=== PATIENT | female | born 1950 | race Caucasian/White ===

== ENCOUNTER 2018-03-20 11:02 | Inpatient (IN) | payer MEDICARE, OTHER ==
[2018-03-13 13:48] LABS: BASOPHILS # (AUTO) 0.1 X10'3 (0-0.2); BASOPHILS % (AUTO) 0.7 % (0-1); EOSINOPHILS # (AUTO) 0.5 X10'3 (0-0.9); EOSINOPHILS % (AUTO) 6.2 % (0-6); LYMPHOCYTES # (AUTO) 1.7 X10'3 (1.1-4.8); LYMPHOCYTES % (AUTO) 19.8 % (21-51); MEAN CORPUSCULAR HEMOGLOBIN 28.7 PG (27.0-31.0); MEAN CORPUSCULAR HGB CONC 32.6 % (33.0-36.5); MEAN CORPUSCULAR VOLUME 87.8 FL (78-98); MEAN PLATELET VOLUME 10.2 FL (7.4-10.4); MONOCYTES # (AUTO) 0.4 X10'3 (0-0.9); MONOCYTES % (AUTO) 4.6 % (2-12); NEUTROPHILS # (AUTO) 6.1 X10'3 (1.8-7.7); NEUTROPHILS % (AUTO) 68.7 % (42-75); PRE OP HEMATOCRIT 43.2 % (35.0-45.0); PRE OP HEMOGLOBIN 14.1 g/dL (12.0-16.0); PRE OP PLATELET COUNT 226 X10'3 (140-440); RED BLOOD COUNT 4.91 X10'6 (4.20-5.60); RED CELL DISTRIBUTION WIDTH 15.2 % (11.5-14.5)
[2018-03-13 13:59] LABS: CLARITY,URINE SLIGHTLY CLOUDY (Clear); COLOR,URINE YELLOW (Yellow); GLUCOSE, URINE NEGATIVE (Neg); KETONES,URINE 40 mg/dl (Neg); LEUKOCYTE ESTERASE ,URINE NEGATIVE (Neg); NITRITES, URINE NEGATIVE (Neg); OCCULT BLOOD,URINE NEGATIVE (Neg); PH,URINE 6.5 (4.8-8.0); PROTEIN,URINE NEGATIVE (Neg); UROBILINOGEN,URINE 0.2 E.U/dL (0.2-1.0)
[2018-03-13 14:00] LABS: UA COLLECTION TYPE CLN CATCH MIDSTREAM
[2018-03-13 14:10] LABS: ALBUMIN 3.9 G/DL (3.4-5.0); ALBUMIN/GLOBULIN RATIO 1.2 (1.1-1.5); ALKALINE PHOSPHATASE 86 IU/L (46-116); BLOOD UREA NITROGEN 29 MG/DL (7-18); BUN/CREATININE RATIO 35.4 (6.6-38.0); CALCIUM 8.7 MG/DL (8.5-10.1); CHLORIDE 105 MMOL/L (99-107); CREATININE 0.82 MG/DL (0.40-0.90); PRE OP ALT 26 U/L (30-65); PRE OP ANION GAP 10 (8-16); PRE OP AST 14 U/L (10-37); PRE OP BILIRUB, TOTAL 0.3 MG/DL (0.0-1.0); PRE OP GLUCOSE 118 MG/DL (70-104); PRE OP POTASSIUM 3.9 MMOL/L (3.4-5.1); PRE OP SODIUM 142 MMOL/L (135-145); TOTAL CARBON DIOXIDE 27.5 MMOL/L (24-32); TOTAL PROTEIN 7.2 G/DL (6.4-8.2); eGFR 70 ML/MIN
[2018-03-13 14:13] LABS: PRE OP PROTIME 10.3 SECONDS (9.0-12.0)
[2018-03-13 14:24] LABS: BACTERIA,URINE 1+ /HPF (Neg); MUCUS STRANDS FEW /LPF (Neg); SQUAMOUS EPITHELIAL CELL,UR FEW /LPF (FEW); WBC,URINE 0-4 /HPF (0-4)
[~2018-03-20] VITALS: Ht 160 cm; Wt 96.9 kg
[2018-03-20] VITALS (18 sets, daily range): BP systolic 109–142; BP diastolic 58–78
[~2018-03-20 11:02] MED LIST: BIOT50002; CALCIUM/MAG/ZINC PO; CYCL-1 PO; FURO20TA4 PO; HYDROmorphone inj. 0.5 MG/0.5 ML DISP.SYRIN IV PRN; LUTEIN/ZEAXANTHIN; MULT-269 PO; NAPR-1166 PO; OMEP20CA10 PO; PER10325T PO; POTA8TAB8 PO; SIMV20TA PO; SUMA25TA35 PO; SUMAtriptan 25 MG tablet PO PRN; VITA1TAB20 PO; ZOLP10TA PO; ZOLP10TA5 PO; acetaminophen 325mg tablet PO ONE; acetaminophen 325mg tablet PO PRN; aspirin 325mg tablet PO SCH; bisacodyl 10mg suppository rectal RC PRN; celeCOXIB 100mg capsule PO ONE; clindamycin 600mg/D5W 50ml 50 ML IV ONE; diphenhydrAMINE 25mg capsule PO PRN; famotidine 20mg tablet PO ONE; gabapentin 300mg capsule PO ONE; magnesium hydroxide 30ml (MOM) UD suspension PO PRN; metoclopramide 5 mg/ml inj IV ONE; ondansetron/PF 4mg/2ml inj IV PRN; oxyCODONE SR 10mg (sust. release) tab -2 tabs (20mg) PO ONE; potassium chloride 8mEq ER tablet PO PRN; ringers solution, lacted 1,000 ML IV SCH; tranexamic acid inj. 1,000 MG in normal saline 100 ML IV ONE; vancomycin inj 1,500 MG in normal saline 300ml IV soln IV ONE
[2018-03-20] MEDS ORDERED: tetracaine 1% (10mg/ml) pres. free inj. ONE (13:09)
[2018-03-20] MEDS ORDERED: MIDAZolam 5mg/5ml vial ONE (13:11)
[2018-03-20] MEDS ORDERED: fentaNYL/PF 50MCG/1 ML 2ML syringe ONE ×2 (13:11→15:05)
[2018-03-20] MEDS ORDERED: morphine /PF 1mg/ml 10ml inj. ONE (13:11)
[2018-03-20] MEDS ORDERED: vancomycin 1,000mg inj ONE (13:15)
[2018-03-20] MEDS ORDERED: propofol inj 20 ML IV ONE ×2 (14:30→14:46)
[2018-03-20] MEDS ORDERED: ROPIVAcaine 0.5% (5mg/ml) 30ml vial ONE (14:30)
[2018-03-20] MEDS ORDERED: dexamethasone sod phosphate 4mg/ml inj. ONE (14:31)
[2018-03-20] MEDS ORDERED: LIDOcaine 1%/PF 5ML 10 MG/ML VIAL ONE (14:31)
[2018-03-20] MEDS ORDERED: ROPIVACAINE HCL/PF PAIN PUMP 400 ML IJ SCH ×2 (14:39→16:56)
[2018-03-20] MEDS ORDERED: naloxone 2mg/2ml inj 1.8 MG in normal saline 500ml IV soln 500 ML IV PRN (14:39)
[2018-03-20] MEDS ORDERED: ringers solution, lacted 1,000 ML IV SCH (14:39)
[2018-03-20] MEDS ORDERED: ondansetron/PF 4mg/2ml inj IV PRN ×2 (14:40)
[2018-03-20] MEDS ORDERED: meperidine/PF 25mg/ml syringe IV PRN ×3 (14:40)
[2018-03-20] MEDS ORDERED: morphine 4 MG/ML inj SYRINge IV PRN ×2 (14:40)
[2018-03-20] MEDS ORDERED: diphenhydrAMINE 50 mg/ml inj IV PRN (14:40)
[2018-03-20] MEDS ORDERED: proCHLORperazine 10 MG/2 ml inj IV PRN (14:40)
[2018-03-20] MEDS ORDERED: diphenhydrAMINE 50 mg/ml inj ONE (15:47)
[2018-03-20] MEDS ORDERED: cefazolin/dext.iso 2gm/100ml 100 ML IV SCH (16:00)
--- NOTE | 2018-03-20 16:25 | NUR ---
Received from OR via , accompanied by Anesthesiologist DR ORR and report given by Anesthesiolgist. AWAKENS TO VOICE. VITALS STABLE. DRESSING DI. ANGELICA PAIN. SENSATION TO THE FEET. RAJAN WITH CLEAR URINE.
--- NOTE | 2018-03-20 17:18 | NUR ---
RECEIVED REPORT FROM FELI CALLE IN RECOVERY
--- NOTE | 2018-03-20 17:45 | NUR ---
Report called to receiving nurse. Transferred via BED Belongings . Special Issues communicated to receiving nurse. AWAKE AND ORIENTED. VITALS STABLE. DRESSING DI. ANGELICA PAIN. TO ORTHO RM [id number] AT THIS TIME.
--- NOTE | 2018-03-20 17:50 | NUR ---
PT ARRIVED ON FLOOR IN ORTHO BED AWAKE
--- NOTE | 2018-03-20 18:23 | NUR ---
GAVE REPORT TO LUC GARCIA
--- NOTE | 2018-03-20 18:28 | NUR ---
Patient in room ORTHO 4015. I have received report from LUC Carlson and had the opportunity to ask questions and assume patient care.
[2018-03-20] MEDS ORDERED: tranexamic acid inj. 1,000 MG in normal saline 100ml IV soln 100 ML IV ONE (19:30)
[2018-03-20] MEDS: potassium cl 20mEq in 1/2 NS 1,000 ML IV SCH ×2 (19:44→21:41)
[2018-03-20] MEDS: ascorbic acid 500mg tablet PO SCH (19:45)
[2018-03-20] MEDS: gabapentin 300mg capsule PO SCH (20:15)
[2018-03-20] MEDS: sennosides 8.6mg tablet PO SCH (20:15)
[2018-03-20] MEDS: pantoprazole 40mg Tablet.DR PO SCH (20:16)
[2018-03-20] MEDS: atorvastatin 10mg tablet PO SCH (20:16)
[2018-03-20] MEDS: ketorolac tromethamine 15mg/ml inj. IV SCH (20:21)
[2018-03-20] MEDS: zolpidem 5mg tablet PO PRN (22:05)
[2018-03-21 01:35] VITALS: BP 113/59
[2018-03-21] MEDS: ketorolac tromethamine 15mg/ml inj. IV SCH (02:11)
[2018-03-21] MEDS: potassium cl 20mEq in 1/2 NS 1,000 ML IV SCH ×3 (05:34→22:47)
[2018-03-21 05:35] VITALS: BP 103/62
[2018-03-21 06:00] VITALS: BP 103/62
[2018-03-21 06:01] LABS: BASOPHILS % (AUTO) 0.4 % (0-1); EOSINOPHILS # (AUTO) 0.2 X10'3 (0-0.9); EOSINOPHILS % (AUTO) 1.6 % (0-6); HEMATOCRIT 35.1 % (35.0-45.0); HEMOGLOBIN 11.6 g/dl (12.0-16.0); LYMPHOCYTES # (AUTO) 1.2 X10'3 (1.1-4.8); LYMPHOCYTES % (AUTO) 11.3 % (21-51); MEAN CORPUSCULAR HEMOGLOBIN 29.2 PG (27.0-31.0); MEAN CORPUSCULAR VOLUME 88.6 FL (78-98); MEAN PLATELET VOLUME 10.1 FL (7.4-10.4); MONOCYTES # (AUTO) 0.5 X10'3 (0-0.9); NEUTROPHILS # (AUTO) 8.6 X10'3 (1.8-7.7); NEUTROPHILS % (AUTO) 81.7 % (42-75); PLATELET COUNT 163 X10'3 (140-440); RED BLOOD COUNT 3.97 X10'6 (4.20-5.60); RED CELL DISTRIBUTION WIDTH 15.3 % (11.5-14.5); WHITE BLOOD COUNT 10.6 X10'3 (4.5-11.0)
[2018-03-21 06:11] LABS: ANION GAP 7 (8-16); CHLORIDE 107 MMOL/L (99-107); POTASSIUM 4.6 MMOL/L (3.5-5.1); SODIUM 139 MMOL/L (135-145); TOTAL CARBON DIOXIDE 24.8 MMOL/L (24-32)
--- NOTE | 2018-03-21 06:26 | NUR ---
Problems reprioritized. Patient report given, questions answered & plan of care reviewed with LUC Montez.
[2018-03-21] MEDS: furosemide 20MG tablet PO SCH (08:00)
[2018-03-21] MEDS: multivitamins, therapeutics tablet PO SCH (09:48)
[2018-03-21] MEDS: gabapentin 300mg capsule PO SCH ×3 (09:48→20:28)
[2018-03-21] MEDS: ascorbic acid 500mg tablet PO SCH ×2 (09:49→20:28)
[2018-03-21] MEDS: enoxaparin 40mg/0.4ml syringe SUBCUT SCH (09:50)
[2018-03-21] MEDS: oxyCODONE/APAP 10/325mg tablet PO PRN ×3 (09:56→20:29)
[2018-03-21 10:00] VITALS: BP 105/56
--- NOTE | 2018-03-21 12:29 | NUR ---
Joint replacement consult: Pt seen by ASHOK for written/verbal high protein ed. ASHOK reviewed high protein needs for wound healing, immune strength, high protein foods, and protein supplementation options. RD contact information provided in case of further questions. Declines additional proteins at this time. Agrees to chocolate ensure high protein TIDWM; ASHOK d/w dietary. Addendum: 03/21/18 at [address] Amended: Links added.
[2018-03-21] MEDS ORDERED: ROPIVAcaine inj 250 MG, ketorolac tromethamine inj. 15 MG, CloNIDine/PF inj 80 MCG, epi... IU ONE ×5 (13:00)
[2018-03-21] MEDS: HYDROmorphone 1 mg/ml syringe IV PRN ×2 (17:24→22:09)
[2018-03-21 18:00] VITALS: BP 125/71
--- NOTE | 2018-03-21 18:10 | NUR ---
Report to Marnie CALLE
--- NOTE | 2018-03-21 18:14 | NUR ---
Patient in room ORTHO 4015. I have received report from LUC Montez and had the opportunity to ask questions and assume patient care.
[2018-03-21] MEDS: pantoprazole 40mg Tablet.DR PO SCH (20:28)
[2018-03-21] MEDS: atorvastatin 10mg tablet PO SCH (20:28)
[2018-03-21] MEDS: sennosides 8.6mg tablet PO SCH (20:28)
[2018-03-21 22:00] VITALS: BP 129/61
[2018-03-21] MEDS: zolpidem 5mg tablet PO PRN (23:13)
[2018-03-22] MEDS: oxyCODONE/APAP 10/325mg tablet PO PRN ×4 (02:09→17:43)
[2018-03-22 06:00] VITALS: BP 116/51
--- NOTE | 2018-03-22 06:36 | NUR ---
Problems reprioritized. Patient report given, questions answered & plan of care reviewed with LUC Espinal.
--- NOTE | 2018-03-22 06:46 | NUR ---
I have received patient report from Marnie CALLE
[2018-03-22] MEDS: ascorbic acid 500mg tablet PO SCH ×2 (07:36→20:49)
[2018-03-22] MEDS: gabapentin 300mg capsule PO SCH ×3 (07:36→20:49)
[2018-03-22] MEDS: multivitamins, therapeutics tablet PO SCH (07:36)
[2018-03-22] MEDS: enoxaparin 40mg/0.4ml syringe SUBCUT SCH (07:37)
[2018-03-22] MEDS: HYDROmorphone 1 mg/ml syringe IV PRN ×4 (07:46→20:49)
[2018-03-22 07:54] LABS: BASOPHILS # (AUTO) 0.1 X10'3 (0-0.2); BASOPHILS % (AUTO) 1.3 % (0-1); EOSINOPHILS # (AUTO) 0.4 X10'3 (0-0.9); EOSINOPHILS % (AUTO) 4.3 % (0-6); HEMATOCRIT 32.8 % (35.0-45.0); LYMPHOCYTES # (AUTO) 2.6 X10'3 (1.1-4.8); LYMPHOCYTES % (AUTO) 25.7 % (21-51); MEAN CORPUSCULAR HEMOGLOBIN 29.3 PG (27.0-31.0); MEAN CORPUSCULAR HGB CONC 33.6 % (33.0-36.5); MEAN CORPUSCULAR VOLUME 87.2 FL (78-98); MEAN PLATELET VOLUME 10.5 FL (7.4-10.4); MONOCYTES % (AUTO) 10.2 % (2-12); NEUTROPHILS # (AUTO) 5.9 X10'3 (1.8-7.7); NEUTROPHILS % (AUTO) 58.5 % (42-75); PLATELET COUNT 163 X10'3 (140-440); RED BLOOD COUNT 3.76 X10'6 (4.20-5.60); RED CELL DISTRIBUTION WIDTH 15.2 % (11.5-14.5); WHITE BLOOD COUNT 10.1 X10'3 (4.5-11.0)
[2018-03-22] MEDS: lactose-reduced food (Ensure High Protein) 237ml bottle PO SCH ×2 (08:00→12:48)
[2018-03-22] MEDS: furosemide 20MG tablet PO SCH (08:00)
[2018-03-22 08:06] LABS: LARGE PLATELETS FEW; PLATELET ESTIMATE NORMAL
[2018-03-22 10:00] VITALS: BP 122/60
[2018-03-22 18:00] VITALS: BP 118/69
--- NOTE | 2018-03-22 18:27 | NUR ---
Patient in room ORTHO 4015. I have received report from LUC Espinal and had the opportunity to ask questions and assume patient care.
--- NOTE | 2018-03-22 18:30 | NUR ---
Patient report given to Marnie CALLE
[2018-03-22] MEDS: pantoprazole 40mg Tablet.DR PO SCH (20:49)
[2018-03-22] MEDS: atorvastatin 10mg tablet PO SCH (20:49)
[2018-03-22] MEDS: sennosides 8.6mg tablet PO SCH (20:50)
[2018-03-22] MEDS: zolpidem 5mg tablet PO PRN (21:50)
[2018-03-22 22:00] VITALS: BP 121/50
[2018-03-23] MEDS: oxyCODONE/APAP 10/325mg tablet PO PRN ×3 (00:48→12:08)
[2018-03-23] MEDS: HYDROmorphone 1 mg/ml syringe IV PRN (05:06)
--- NOTE | 2018-03-23 05:58 | NUR ---
Problems reprioritized. Patient report given, questions answered & plan of care reviewed with LUC Espinal.
[2018-03-23 06:00] VITALS: BP 130/61
--- NOTE | 2018-03-23 06:26 | NUR ---
I have received patient report from Marnie CALLE
[2018-03-23 07:48] LABS: BASOPHILS # (AUTO) 0.1 X10'3 (0-0.2); BASOPHILS % (AUTO) 1.2 % (0-1); EOSINOPHILS # (AUTO) 0.5 X10'3 (0-0.9); EOSINOPHILS % (AUTO) 4.2 % (0-6); HEMATOCRIT 32.3 % (35.0-45.0); HEMOGLOBIN 10.8 g/dl (12.0-16.0); LYMPHOCYTES # (AUTO) 2.5 X10'3 (1.1-4.8); LYMPHOCYTES % (AUTO) 21.3 % (21-51); MEAN CORPUSCULAR HEMOGLOBIN 29.4 PG (27.0-31.0); MEAN CORPUSCULAR HGB CONC 33.3 % (33.0-36.5); MEAN CORPUSCULAR VOLUME 88.1 FL (78-98); MEAN PLATELET VOLUME 10.5 FL (7.4-10.4); MONOCYTES # (AUTO) 1.3 X10'3 (0-0.9); MONOCYTES % (AUTO) 11.6 % (2-12); NEUTROPHILS # (AUTO) 7.1 X10'3 (1.8-7.7); NEUTROPHILS % (AUTO) 61.7 % (42-75); PLATELET COUNT 190 X10'3 (140-440); RED BLOOD COUNT 3.67 X10'6 (4.20-5.60); RED CELL DISTRIBUTION WIDTH 15.1 % (11.5-14.5); WHITE BLOOD COUNT 11.6 X10'3 (4.5-11.0)
[2018-03-23] MEDS: furosemide 20MG tablet PO SCH (08:00)
[2018-03-23] MEDS: multivitamins, therapeutics tablet PO SCH (08:22)
[2018-03-23] MEDS: gabapentin 300mg capsule PO SCH ×2 (08:22→12:08)
[2018-03-23] MEDS: enoxaparin 40mg/0.4ml syringe SUBCUT SCH (08:22)
[2018-03-23] MEDS: ascorbic acid 500mg tablet PO SCH (08:22)
[2018-03-23 10:00] VITALS: BP 117/58
[2018-03-23 10:53] LABS: LARGE PLATELETS FEW; PLATELET ESTIMATE NORMAL
--- NOTE | 2018-03-23 14:15 | NUR ---
patient discharged and had all belongings, follow up appointment with dr. Grullon made already. Medications already pre-arranged and at patients home.
== END 2018-03-23 14:30 | disposition home or self-care (01) | DRG 470 ==
LOC: PAS IN 11:02 → EDSTATUS 15:00 → ORTHO 4S 17:50
PROVIDERS: ADMIT Orthopaedic Surgery; ATTEND Orthopaedic Surgery
PROC: 3E0T3BZ Introduction of Anesthetic Agent into Peripheral Nerves and Plexi, Percutaneous Approach (ICD-10-PCS; 2018-03-20)
PROC: 0SRC0J9 Replacement of Right Knee Joint with Synthetic Substitute, Cemented, Open Approach (ICD-10-PCS; principal; 2018-03-20 13:45)
DX: M17.0 Bilateral primary osteoarthritis of knee (principal); D62 Acute posthemorrhagic anemia; G89.4 Chronic pain syndrome; I10 Essential (primary) hypertension; G47.33 Obstructive sleep apnea (adult) (pediatric); E66.9 Obesity, unspecified; M79.7 Fibromyalgia; E78.5 Hyperlipidemia, unspecified; K21.9 Gastro-esophageal reflux disease without esophagitis; Z90.710 Acquired absence of both cervix and uterus; Z98.51 Tubal ligation status; Z88.0 Allergy status to penicillin; Z88.8 Allergy status to other drugs, medicaments and biological substances; Z79.01 Long term (current) use of anticoagulants; Z86.711 Personal history of pulmonary embolism; Z87.891 Personal history of nicotine dependence; Z82.49 Family history of ischemic heart disease and other diseases of the circulatory system; Z82.5 Family history of asthma and other chronic lower respiratory diseases; Z68.37 Body mass index [BMI] 37.0-37.9, adult
CPT/HCPCS: 36415; 71046; 73560; 80051; 80053; 81001; 82948; 85025; 85610; 85730; 86885; 86900; 86901; 87070; 93005; 97110; 97116; 97161; 97530; A6455; A7000; C1713; C1758; C1776; G0378; J1100; J1170; J1200; J1650; J1885; J2001; J2250; J2274; J2704; J2765; J2795; J3010; J3370; J3490; J7030; J7120